=== PATIENT | male | born 1950 | race Caucasian/White ===

== ENCOUNTER 2016-11-17 06:20 | Outpatient (CLI) | payer MEDICARE, OTHER | END 2016-11-17 06:21 | disposition home or self-care (01) | DX: E11.9 Type 2 diabetes mellitus without complications (principal); Z79.899 Other long term (current) drug therapy; E78.5 Hyperlipidemia, unspecified ==

== ENCOUNTER 2016-11-20 10:45 | Outpatient (CLI) | payer MEDICARE, OTHER | END 2016-11-20 10:46 | disposition home or self-care (01) | DX: D64.9 Anemia, unspecified (principal) ==

== ENCOUNTER 2017-02-07 09:37 | Outpatient (CLI) | payer MEDICARE, OTHER | END 2017-02-07 09:38 | disposition home or self-care (01) | DX: E11.9 Type 2 diabetes mellitus without complications (principal) ==

== ENCOUNTER 2017-06-06 11:36 | Outpatient (CLI) | payer MEDICARE, OTHER ==
[2017-06-06 19:44] LABS: HEMOGLOBIN A1C 0.79 g/dL
== END 2017-06-06 11:37 | disposition home or self-care (01) ==
LOC: LAB.WCP 11:36
PROVIDERS: ATTEND Family Medicine
DX: E11.9 Type 2 diabetes mellitus without complications (principal)
CPT/HCPCS: 36415; 83036

== ENCOUNTER 2017-12-28 08:00 | Outpatient (CLI) | payer MEDICARE, OTHER ==
[2017-12-28 13:01] LABS: HB2 TOTAL 15.2 g/dL; HEMOGLOBIN A1C 0.82 g/dL; HEMOGLOBIN A1C % 7.1 % (4.6-6.2)
== END 2017-12-28 08:01 | disposition home or self-care (01) ==
LOC: LAB.WCP 08:00
PROVIDERS: ATTEND Family Medicine
DX: E11.9 Type 2 diabetes mellitus without complications (principal); I10 Essential (primary) hypertension; E78.5 Hyperlipidemia, unspecified
CPT/HCPCS: 36415; 83036

== ENCOUNTER 2018-03-15 09:30 | Outpatient (CLI) | payer MEDICARE, OTHER ==
[2018-03-15 12:41] LABS: CALCIUM 9.5 mg/dL (8.5-10.3); CREATININE 0.8 mg/dL (0.6-1.2)
[2018-03-15 13:10] LABS: HB2 TOTAL 14.6 g/dL; HEMOGLOBIN A1C 0.77 g/dL
== END 2018-03-15 09:31 | disposition home or self-care (01) ==
LOC: LAB.WCP 09:30
PROVIDERS: ATTEND Family Medicine
DX: E11.9 Type 2 diabetes mellitus without complications (principal); I10 Essential (primary) hypertension
CPT/HCPCS: 36415; 80048; 83036

== ENCOUNTER 2018-06-14 08:00 | Outpatient (CLI) | payer MEDICARE, OTHER ==
[2018-06-14 13:29] LABS: HB2 TOTAL 13.1 g/dL; HEMOGLOBIN A1C 0.63 g/dL; HEMOGLOBIN A1C % 6.6 % (4.6-6.2)
== END 2018-06-14 08:01 | disposition home or self-care (01) ==
LOC: LAB.WCP 08:00
PROVIDERS: ATTEND Family Medicine
DX: E11.9 Type 2 diabetes mellitus without complications (principal)
CPT/HCPCS: 36415; 83036

== ENCOUNTER 2018-09-16 10:32 | Outpatient (CLI) | payer MEDICARE, OTHER ==
[2018-09-16 13:31] LABS: ALBUMIN 3.8 g/dL (3.2-5.5); ALBUMIN/GLOBULIN RATIO 1.2 (1.0-2.2); ALKALINE PHOSPHATASE 60 IU/L (42-121); ALT ALANINE AMINOTRANSFERASE 24 IU/L (10-60); AST ASPARTATE AMINOTRANSFERASE 28 IU/L (10-42); BILIRUBIN,TOTAL 0.6 mg/dL (0.2-1.0); BUN - BLOOD UREA NITROGEN 17 mg/dL (6-20); CALCIUM 10.4 mg/dL (8.5-10.3); CARBON DIOXIDE - CO2 28 mmol/L (21-32); CHLORIDE 104 mmol/L (101-111); CHOL/HDL RATIO 2.8 (<5.0); CHOLESTEROL 169 mg/dL; GFR - MDRD 74 (>89); GLUCOSE 142 mg/dL (70-100); HDL CHOLESTEROL 60 mg/dL; LDL CHOLESTEROL,CALCULATED 88 mg/dL; LDL/HDL RATIO 1.5 (<3.6); SODIUM 139 mmol/L (135-145); TOTAL PROTEIN 6.9 g/dL (6.7-8.2); VLDL CHOLESTEROL 21 mg/dL
[2018-09-16 13:35] LABS: HB2 TOTAL 14.4 g/dL; HEMOGLOBIN A1C 0.71 g/dL; HEMOGLOBIN A1C % 6.7 % (4.6-6.2)
== END 2018-09-16 10:33 | disposition home or self-care (01) ==
LOC: LAB.WCP 10:32
PROVIDERS: ATTEND Family Medicine
DX: D64.9 Anemia, unspecified (principal); E11.9 Type 2 diabetes mellitus without complications; I10 Essential (primary) hypertension; E78.5 Hyperlipidemia, unspecified
CPT/HCPCS: 36415; 80053; 80061; 82043; 83036; 83721

== ENCOUNTER 2019-03-19 09:21 | Outpatient (CLI) | payer MEDICARE, OTHER ==
[2019-03-19 12:26] LABS: BASOPHILS # (AUTO) 0.1 10^3/uL (0.0-0.1); BASOPHILS % (AUTO) 0.8 %; EOSINOPHILS # (AUTO) 0.5 10^3/uL (0.0-0.7); EOSINOPHILS % (AUTO) 7.7 %; HGB - HEMOGLOBIN 12.7 g/dL (14.0-18.0); LYMPHOCYTES # (AUTO) 1.7 10^3/uL (1.5-3.5); LYMPHOCYTES % (AUTO) 26.6 %; MEAN CORPUSCULAR HEMOGLOBIN 31.7 pg (27.0-31.0); MEAN CORPUSCULAR HGB CONC 34.1 g/dL (32.0-36.0); MEAN CORPUSCULAR VOLUME 92.7 fL (80.0-94.0); MONOCYTES # (AUTO) 0.6 10^3/uL (0.0-1.0); NEUTROPHILS # (AUTO) 3.6 10^3/uL (1.5-6.6); NEUTROPHILS % (AUTO) 55.9 %; PLT - PLATELET COUNT 184 10^3/uL (130-450); RED BLOOD COUNT 4.02 10^6/uL (4.70-6.10); RED CELL DISTRIBUTION WIDTH 13.7 % (12.0-15.0); WHITE BLOOD COUNT 6.4 x10^3/uL (4.8-10.8)
[2019-03-19 13:12] LABS: HB2 TOTAL 13.4 g/dL; HEMOGLOBIN A1C 0.68 g/dL; HEMOGLOBIN A1C % 6.8 % (4.6-6.2)
[2019-03-19 13:58] LABS: ALBUMIN 3.8 g/dL (3.2-5.5); ALBUMIN/GLOBULIN RATIO 1.3 (1.0-2.2); ALKALINE PHOSPHATASE 59 IU/L (42-121); ALT ALANINE AMINOTRANSFERASE 23 IU/L (10-60); AST ASPARTATE AMINOTRANSFERASE 25 IU/L (10-42); BILIRUBIN,TOTAL 0.5 mg/dL (0.2-1.0); BUN - BLOOD UREA NITROGEN 17 mg/dL (6-20); CHOL/HDL RATIO 3.1 (<5.0); CHOLESTEROL 165 mg/dL; CREATININE 1.1 mg/dL (0.6-1.2); GFR - MDRD 66 (>89); HDL CHOLESTEROL 53 mg/dL; LDL CHOLESTEROL,CALCULATED 81 mg/dL; LDL/HDL RATIO 1.5 (<3.6); TOTAL PROTEIN 6.8 g/dL (6.7-8.2); VLDL CHOLESTEROL 31 mg/dL
[2019-03-19 14:53] LABS: CALCIUM 9.7 mg/dL (8.5-10.3); CARBON DIOXIDE - CO2 26 mmol/L (21-32); CHLORIDE 103 mmol/L (101-111); GLUCOSE 151 mg/dL (70-100); SODIUM 141 mmol/L (135-145)
[2019-03-20 15:26] LABS: HEPATITIS C ANTIBODY NON-REACTIVE (NON-REACTIVE)
== END 2019-03-19 09:22 | disposition home or self-care (01) ==
LOC: LAB.WCP 09:21
PROVIDERS: ATTEND Family Medicine
DX: E11.9 Type 2 diabetes mellitus without complications (principal); E83.52 Hypercalcemia; Z11.59 Encounter for screening for other viral diseases
CPT/HCPCS: 36415; 80053; 80061; 82043; 83036; 83721; 83970; 85025; 86803

== ENCOUNTER 2019-09-19 09:39 | Outpatient (CLI) | payer MEDICARE, OTHER ==
[2019-09-19 13:22] LABS: ALBUMIN 3.9 g/dL (3.2-5.5); ALBUMIN/GLOBULIN RATIO 1.2 (1.0-2.2); BILIRUBIN,TOTAL 0.6 mg/dL (0.2-1.0); CALCIUM 10.1 mg/dL (8.5-10.3); TOTAL PROTEIN 7.2 g/dL (6.7-8.2)
[2019-09-19 14:01] LABS: HB2 TOTAL 12.7 g/dL; HEMOGLOBIN A1C 0.7 g/dL; HEMOGLOBIN A1C % 7.2 % (4.6-6.2)
== END 2019-09-19 23:59 | disposition home or self-care (01) ==
LOC: LAB.WCP 09:39
PROVIDERS: ATTEND Family Medicine
DX: E11.9 Type 2 diabetes mellitus without complications (principal); Z12.5 Encounter for screening for malignant neoplasm of prostate
CPT/HCPCS: 36415; 80053; 83036; 84153

== ENCOUNTER 2021-01-13 10:19 | Outpatient (CLI) | payer MEDICARE, OTHER ==
[2021-01-13 13:54] LABS: BASOPHILS # (AUTO) 0.1 10^3/uL (0.0-0.1); BASOPHILS % (AUTO) 0.8 %; EOSINOPHILS # (AUTO) 0.4 10^3/uL (0.0-0.7); EOSINOPHILS % (AUTO) 6.2 %; HCT - HEMATOCRIT 41.4 % (42.0-52.0); HGB - HEMOGLOBIN 13.7 g/dL (14.0-18.0); LYMPHOCYTES # (AUTO) 1.5 10^3/uL (1.5-3.5); LYMPHOCYTES % (AUTO) 23.1 %; MEAN CORPUSCULAR HEMOGLOBIN 31.8 pg (27.0-31.0); MEAN CORPUSCULAR HGB CONC 33.1 g/dL (32.0-36.0); MEAN CORPUSCULAR VOLUME 96.1 fL (80.0-94.0); MEAN PLATELET VOLUME 12.9 fL (7.4-11.4); MONOCYTES # (AUTO) 0.6 10^3/uL (0.0-1.0); NEUTROPHILS # (AUTO) 3.9 10^3/uL (1.5-6.6); NEUTROPHILS % (AUTO) 60.1 %; PLT - PLATELET COUNT 156 10^3/uL (130-450); RED BLOOD COUNT 4.31 10^6/uL (4.70-6.10); RED CELL DISTRIBUTION WIDTH 12.8 % (12.0-15.0); WHITE BLOOD COUNT 6.5 x10^3/uL (4.8-10.8)
[2021-01-13 14:21] LABS: THYROID STIMULATING HORMONE 2.41 uIU/mL (0.34-5.60)
[2021-01-13 14:28] LABS: FERRITIN 90.9 ng/mL (23.9-336.2)
[2021-01-13 14:34] LABS: % IRON SATURATION 26 % (20-50); ALBUMIN/GLOBULIN RATIO 1.3 (1.0-2.2); ALKALINE PHOSPHATASE 55 IU/L (42-121); ALT ALANINE AMINOTRANSFERASE 32 IU/L (10-60); AST ASPARTATE AMINOTRANSFERASE 34 IU/L (10-42); BILIRUBIN,TOTAL 0.5 mg/dL (0.2-1.0); BUN - BLOOD UREA NITROGEN 21 mg/dL (6-20); CARBON DIOXIDE - CO2 25 mmol/L (21-32); CHLORIDE 100 mmol/L (101-111); CHOL/HDL RATIO 2.9 (<5.0); CHOLESTEROL 168 mg/dL; GFR - MDRD 74 (>89); GLUCOSE 179 mg/dL (70-100); HDL CHOLESTEROL 58 mg/dL; IRON 105 ug/dL (45-182); LDL CHOLESTEROL,CALCULATED 88 mg/dL; LDL/HDL RATIO 1.5 (<3.6); POTASSIUM 4.1 mmol/L (3.5-5.0); SODIUM 137 mmol/L (135-145); TOTAL IRON BINDING CAPACITY 399 ug/dL (250-450); TOTAL PROTEIN 7.2 g/dL (6.7-8.2); TRANSFERRIN 285 mg/dL (180-329); TRIGLYCERIDES 111 mg/dL; VLDL CHOLESTEROL 22 mg/dL
[2021-01-13 14:39] LABS: ESTIMATED AVERAGE GLUCOSE 186 mg/dL (70-100); HEMOGLOBIN A1c% 8.1 % (4.27-6.07)
[2021-01-13 14:49] LABS: CREATININE,URINE 117.6 mg/dL; MICROALBUM/CREATININE RATIO,UR 27.2 ug/mg (<30.0); MICROALBUMIN,URINE 3.2 mg/dL (0-300.0)
== END 2021-01-13 23:59 | disposition home or self-care (01) ==
LOC: LAB.WCP 10:19
PROVIDERS: ATTEND Family Medicine
DX: E11.9 Type 2 diabetes mellitus without complications (principal); Z12.5 Encounter for screening for malignant neoplasm of prostate; E78.5 Hyperlipidemia, unspecified; D64.9 Anemia, unspecified
CPT/HCPCS: 36415; 80053; 80061; 82043; 82570; 82607; 82728; 83036; 83540; 84443; 84466; 85025; G0103; 83721; 84153

== ENCOUNTER 2021-04-15 11:04 | Outpatient (CLI) | payer MEDICARE, OTHER ==
[2021-04-15 18:01] LABS: CALCIUM 10.3 mg/dL (8.5-10.3); POTASSIUM 4.5 mmol/L (3.5-5.0)
[2021-04-15 20:34] LABS: ESTIMATED AVERAGE GLUCOSE 180 mg/dL (70-100); HEMOGLOBIN A1c% 7.9 % (4.27-6.07)
== END 2021-04-15 23:59 | disposition home or self-care (01) ==
LOC: LAB.WCP 11:04
PROVIDERS: ATTEND Family Medicine
DX: E11.9 Type 2 diabetes mellitus without complications (principal)
CPT/HCPCS: 36415; 80048; 83036

== ENCOUNTER 2021-10-12 08:00 | Outpatient (CLI) | payer MEDICARE, OTHER ==
[2021-10-12 18:19] LABS: BASOPHILS % (AUTO) 0.6 %; EOSINOPHILS # (AUTO) 0.4 10^3/uL (0.0-0.7); EOSINOPHILS % (AUTO) 6.5 %; HCT - HEMATOCRIT 41.4 % (42.0-52.0); HGB - HEMOGLOBIN 13.4 g/dL (14.0-18.0); LYMPHOCYTES # (AUTO) 1.3 10^3/uL (1.5-3.5); LYMPHOCYTES % (AUTO) 21.2 %; MEAN CORPUSCULAR HEMOGLOBIN 31.5 pg (27.0-31.0); MEAN CORPUSCULAR HGB CONC 32.4 g/dL (32.0-36.0); MEAN CORPUSCULAR VOLUME 97.2 fL (80.0-94.0); MEAN PLATELET VOLUME 12.1 fL (7.4-11.4); MONOCYTES # (AUTO) 0.4 10^3/uL (0.0-1.0); MONOCYTES % (AUTO) 6.8 %; NEUTROPHILS # (AUTO) 4.1 10^3/uL (1.5-6.6); NEUTROPHILS % (AUTO) 64.3 %; PLT - PLATELET COUNT 191 10^3/uL (130-450); RED BLOOD COUNT 4.26 10^6/uL (4.70-6.10); RED CELL DISTRIBUTION WIDTH 13.2 % (12.0-15.0); WHITE BLOOD COUNT 6.3 x10^3/uL (4.8-10.8)
[2021-10-12 18:39] LABS: ALBUMIN 3.8 g/dL (3.2-5.5); ALBUMIN/GLOBULIN RATIO 1.3 (1.0-2.2); ALKALINE PHOSPHATASE 52 IU/L (42-121); ALT ALANINE AMINOTRANSFERASE 23 IU/L (10-60); AST ASPARTATE AMINOTRANSFERASE 26 IU/L (10-42); BILIRUBIN,TOTAL 0.5 mg/dL (0.2-1.0); BUN - BLOOD UREA NITROGEN 17 mg/dL (6-20); CALCIUM 10.2 mg/dL (8.5-10.3); CARBON DIOXIDE - CO2 26 mmol/L (21-32); CHLORIDE 103 mmol/L (101-111); CHOLESTEROL 162 mg/dL; GFR - MDRD 74 (>89); GLUCOSE 192 mg/dL (70-100); HDL CHOLESTEROL 54 mg/dL; LDL CHOLESTEROL,CALCULATED 86 mg/dL; LDL/HDL RATIO 1.6 (<3.6); POTASSIUM 4.1 mmol/L (3.5-5.0); SODIUM 141 mmol/L (135-145); TOTAL PROTEIN 6.8 g/dL (6.7-8.2); TRIGLYCERIDES 109 mg/dL; VLDL CHOLESTEROL 22 mg/dL
[2021-10-12 18:43] LABS: CREATININE,URINE 131.5 mg/dL; MICROALBUM/CREATININE RATIO,UR 54.8 ug/mg (<30.0); MICROALBUMIN,URINE 7.2 mg/dL (0-300.0)
[2021-10-12 18:48] LABS: THYROID STIMULATING HORMONE 2.52 uIU/mL (0.34-5.60)
[2021-10-12 21:18] LABS: ESTIMATED AVERAGE GLUCOSE 197 mg/dL (70-100); HEMOGLOBIN A1c% 8.5 % (4.27-6.07)
== END 2021-10-12 23:59 ==
LOC: LAB.WCP 08:00
PROVIDERS: ATTEND Family Medicine
DX: E11.9 Type 2 diabetes mellitus without complications (principal); Z12.5 Encounter for screening for malignant neoplasm of prostate
CPT/HCPCS: 36415; 80053; 80061; 82043; 82570; 83036; 84443; 85025; G0103; 83721; 84153

== ENCOUNTER 2021-11-09 10:36 | Outpatient (CLI) | payer MEDICARE, OTHER ==
--- NOTE | 2021-11-09 16:35 | XRAY Report ---
PROCEDURE: Hand 3 View RT INDICATIONS: R THUMB PX TECHNIQUE: 3 views of the hand(s) acquired. COMPARISON: None FINDINGS: Bones: No fractures or dislocations. No suspicious bony lesions. Moderate first CMC joint osteoarth ritis. Moderate second and third DIP joint arthritis. Mild fourth and fifth DIP joint arthritis. Soft tissues: No suspicious soft tissue calcifications. IMPRESSION: Osteoarthritis as described above. No fracture. No acute osseous lesion. If there persistent symptoms or continued clinical concern for pathology, then repeat plain film radiographs (7-10 days) or advanced imaging (CT, MR, bone scan) wilver uld be considered for further evaluation. Reviewed by: Roxane Gregg MD, PhD on 11/09/2021 4:33 PM PST Approved by: Roxane Gregg MD, PhD on 11/09/2021 4:33 PM PST Station ID: [id number]
== END 2021-11-09 10:37 | disposition home or self-care (01) ==
LOC: DI.N 10:36
PROVIDERS: ATTEND Family Medicine
DX: M19.041 Primary osteoarthritis, right hand (principal); M18.11 Unilateral primary osteoarthritis of first carpometacarpal joint, right hand

== ENCOUNTER 2022-03-31 08:41 | Outpatient (CLI) | payer MEDICARE, OTHER ==
[2022-03-31 12:20] LABS: ESTIMATED AVERAGE GLUCOSE 169 mg/dL (70-100); HEMOGLOBIN A1c% 7.5 % (4.27-6.07)
[2022-03-31 12:25] LABS: ALBUMIN 3.9 g/dL (3.2-5.5); ALBUMIN/GLOBULIN RATIO 1.2 (1.0-2.2); ALKALINE PHOSPHATASE 51 IU/L (42-121); ALT ALANINE AMINOTRANSFERASE 18 IU/L (10-60); AST ASPARTATE AMINOTRANSFERASE 20 IU/L (10-42); BILIRUBIN,TOTAL 0.4 mg/dL (0.2-1.0); BUN - BLOOD UREA NITROGEN 22 mg/dL (6-20); CALCIUM 11.2 mg/dL (8.5-10.3); CARBON DIOXIDE - CO2 27 mmol/L (21-32); CHLORIDE 103 mmol/L (101-111); CHOLESTEROL 167 mg/dL; CREATININE 1.1 mg/dL (0.6-1.2); GFR - MDRD 66 (>89); GLUCOSE 179 mg/dL (70-100); HDL CHOLESTEROL 56 mg/dL; LDL CHOLESTEROL,CALCULATED 87 mg/dL; LDL/HDL RATIO 1.6 (<3.6); POTASSIUM 4.4 mmol/L (3.5-5.0); SODIUM 142 mmol/L (135-145); TOTAL PROTEIN 7.1 g/dL (6.7-8.2); TRIGLYCERIDES 122 mg/dL; VLDL CHOLESTEROL 24 mg/dL
== END 2022-03-31 08:42 | disposition home or self-care (01) ==
LOC: LAB.N 08:41
PROVIDERS: ATTEND Nurse Practitioner Family
DX: E11.9 Type 2 diabetes mellitus without complications (principal)
CPT/HCPCS: 36415; 80053; 80061; 83036; 83721

== ENCOUNTER 2022-07-03 10:46 | Outpatient (CLI) | payer MEDICARE, OTHER ==
[2022-07-03 18:16] LABS: ALBUMIN 4.1 g/dL (3.2-5.5); ALBUMIN/GLOBULIN RATIO 1.2 (1.0-2.2); ALKALINE PHOSPHATASE 56 IU/L (42-121); ALT ALANINE AMINOTRANSFERASE 23 IU/L (10-60); AST ASPARTATE AMINOTRANSFERASE 28 IU/L (10-42); BILIRUBIN,TOTAL 0.5 mg/dL (0.2-1.0); BUN - BLOOD UREA NITROGEN 24 mg/dL (6-20); CALCIUM 9.8 mg/dL (8.5-10.3); CARBON DIOXIDE - CO2 27 mmol/L (21-32); CHLORIDE 100 mmol/L (101-111); CHOL/HDL RATIO 2.6 (<5.0); CHOLESTEROL 167 mg/dL; CREATININE 1.1 mg/dL (0.6-1.2); GFR - MDRD 66 (>89); GLUCOSE 183 mg/dL (70-100); HDL CHOLESTEROL 65 mg/dL; LDL CHOLESTEROL,CALCULATED 79 mg/dL; LDL/HDL RATIO 1.2 (<3.6); POTASSIUM 4.6 mmol/L (3.5-5.0); SODIUM 137 mmol/L (135-145); TOTAL PROTEIN 7.4 g/dL (6.7-8.2); TRIGLYCERIDES 115 mg/dL; VLDL CHOLESTEROL 23 mg/dL
== END 2022-07-03 10:47 | disposition home or self-care (01) ==
LOC: LAB.N 10:46
PROVIDERS: ATTEND Nurse Practitioner Family
DX: E11.9 Type 2 diabetes mellitus without complications (principal); E78.5 Hyperlipidemia, unspecified
CPT/HCPCS: 36415; 80053; 80061; 83721

== ENCOUNTER 2022-10-04 10:53 | Outpatient (CLI) | payer MEDICARE, OTHER | END 2022-10-04 10:54 | disposition home or self-care (01) | LOC: LAB.N 10:53 | PROVIDERS: ATTEND Nurse Practitioner Family | DX: Z53.9 Procedure and treatment not carried out, unspecified reason (principal) ==

== ENCOUNTER 2022-10-04 11:17 | Outpatient (CLI) | payer MEDICARE, OTHER | END 2022-10-04 11:18 | disposition home or self-care (01) | LOC: LAB.N 11:17 | PROVIDERS: ATTEND Nurse Practitioner Family | DX: Z53.9 Procedure and treatment not carried out, unspecified reason (principal) ==

== ENCOUNTER 2023-03-08 10:14 | Outpatient (CLI) | payer MEDICARE, OTHER ==
[2023-03-08 11:52] LABS: BASOPHILS # (AUTO) 0.1 10^3/uL (0.0-0.1); BASOPHILS % (AUTO) 0.6 %; EOSINOPHILS # (AUTO) 0.5 10^3/uL (0.0-0.7); EOSINOPHILS % (AUTO) 5.9 %; HCT - HEMATOCRIT 40.4 % (42.0-52.0); HGB - HEMOGLOBIN 13.2 g/dL (14.0-18.0); LYMPHOCYTES # (AUTO) 1.6 10^3/uL (1.5-3.5); LYMPHOCYTES % (AUTO) 20.6 %; MEAN CORPUSCULAR HEMOGLOBIN 31.2 pg (27.0-31.0); MEAN CORPUSCULAR HGB CONC 32.7 g/dL (32.0-36.0); MEAN CORPUSCULAR VOLUME 95.5 fL (80.0-94.0); MEAN PLATELET VOLUME 11.6 fL (7.4-11.4); MONOCYTES # (AUTO) 0.7 10^3/uL (0.0-1.0); MONOCYTES % (AUTO) 8.7 %; NEUTROPHILS % (AUTO) 63.8 %; PLT - PLATELET COUNT 180 10^3/uL (130-450); RED BLOOD COUNT 4.23 10^6/uL (4.70-6.10); RED CELL DISTRIBUTION WIDTH 12.9 % (12.0-15.0); WHITE BLOOD COUNT 7.8 x10^3/uL (4.8-10.8)
[2023-03-08 12:28] LABS: ESTIMATED AVERAGE GLUCOSE 183 mg/dL (70-100)
[2023-03-08 14:20] LABS: ALBUMIN 4.1 g/dL (3.2-5.5); ALBUMIN/GLOBULIN RATIO 1.2 (1.0-2.2); ALKALINE PHOSPHATASE 58 IU/L (42-121); ALT ALANINE AMINOTRANSFERASE 18 IU/L (10-60); AST ASPARTATE AMINOTRANSFERASE 22 IU/L (10-42); BILIRUBIN,TOTAL 0.5 mg/dL (0.2-1.0); BUN - BLOOD UREA NITROGEN 27 mg/dL (6-20); CALCIUM 9.6 mg/dL (8.5-10.3); CARBON DIOXIDE - CO2 29 mmol/L (21-32); CHLORIDE 104 mmol/L (101-111); CHOL/HDL RATIO 2.4 (<5.0); CHOLESTEROL 133 mg/dL; CREATININE 1.2 mg/dL (0.6-1.2); GFR - MDRD 59 (>89); GLUCOSE 217 mg/dL (70-100); HDL CHOLESTEROL 55 mg/dL; LDL CHOLESTEROL,CALCULATED 54 mg/dL; POTASSIUM 4.3 mmol/L (3.5-5.0); SODIUM 140 mmol/L (135-145); TOTAL PROTEIN 7.6 g/dL (6.7-8.2); TRIGLYCERIDES 119 mg/dL; VLDL CHOLESTEROL 24 mg/dL
== END 2023-03-08 10:15 | disposition home or self-care (01) ==
LOC: LAB.N 10:14
PROVIDERS: ATTEND Nurse Practitioner Family
DX: I10 Essential (primary) hypertension (principal); E11.9 Type 2 diabetes mellitus without complications; E78.5 Hyperlipidemia, unspecified
CPT/HCPCS: 36415; 80053; 80061; 83036; 83721; 85025

== ENCOUNTER 2023-08-08 10:41 | Outpatient (CLI) | payer MEDICARE, OTHER ==
[2023-08-08 17:38] LABS: BASOPHILS # (AUTO) 0.1 10^3/uL (0.0-0.1); BASOPHILS % (AUTO) 0.9 %; EOSINOPHILS # (AUTO) 0.4 10^3/uL (0.0-0.7); EOSINOPHILS % (AUTO) 5.5 %; HCT - HEMATOCRIT 39.1 % (42.0-52.0); HGB - HEMOGLOBIN 12.6 g/dL (14.0-18.0); LYMPHOCYTES # (AUTO) 1.7 10^3/uL (1.5-3.5); LYMPHOCYTES % (AUTO) 21.8 %; MEAN CORPUSCULAR HEMOGLOBIN 31.4 pg (27.0-31.0); MEAN CORPUSCULAR HGB CONC 32.2 g/dL (32.0-36.0); MEAN CORPUSCULAR VOLUME 97.5 fL (80.0-94.0); MEAN PLATELET VOLUME 12.1 fL (7.4-11.4); MONOCYTES # (AUTO) 0.7 10^3/uL (0.0-1.0); MONOCYTES % (AUTO) 8.7 %; NEUTROPHILS # (AUTO) 4.8 10^3/uL (1.5-6.6); NEUTROPHILS % (AUTO) 62.6 %; PLT - PLATELET COUNT 183 10^3/uL (130-450); RED BLOOD COUNT 4.01 10^6/uL (4.70-6.10); RED CELL DISTRIBUTION WIDTH 13.2 % (12.0-15.0); WHITE BLOOD COUNT 7.7 x10^3/uL (4.8-10.8)
[2023-08-08 18:30] LABS: ALBUMIN/GLOBULIN RATIO 1.5 (1.0-2.2); ALKALINE PHOSPHATASE 64 IU/L (42-121); ALT ALANINE AMINOTRANSFERASE 11 IU/L (10-60); AST ASPARTATE AMINOTRANSFERASE 15 IU/L (10-42); BILIRUBIN,TOTAL 0.3 mg/dL (0.2-1.0); BUN - BLOOD UREA NITROGEN 19 mg/dL (6-20); CALCIUM 10.4 mg/dL (8.5-10.3); CARBON DIOXIDE - CO2 28 mmol/L (21-32); CHLORIDE 108 mmol/L (101-111); CHOL/HDL RATIO 2.6 (<5.0); CHOLESTEROL 151 mg/dL; CREATININE 1.1 mg/dL (0.6-1.3); GFR - MDRD 66 (>89); GLUCOSE 144 mg/dL (74-104); HDL CHOLESTEROL 59 mg/dL; LDL CHOLESTEROL,CALCULATED 69 mg/dL; LDL/HDL RATIO 1.2 (<3.6); SODIUM 143 mmol/L (135-145); TOTAL PROTEIN 6.7 g/dL (6.4-8.9); TRIGLYCERIDES 116 mg/dL (48-352); VLDL CHOLESTEROL 23 mg/dL
[2023-08-08 18:34] LABS: CREATININE,URINE 210.7 mg/dL; MICROALBUM/CREATININE RATIO,UR 97.3 ug/mg (<30.0); MICROALBUMIN,URINE 20.5 mg/dL
[2023-08-08 20:55] LABS: ESTIMATED AVERAGE GLUCOSE 169 mg/dL (70-100); HEMOGLOBIN A1c% 7.5 % (4.27-6.07)
== END 2023-08-08 10:42 | disposition home or self-care (01) ==
LOC: LAB.N 10:41
PROVIDERS: ATTEND Nurse Practitioner Family
DX: E11.9 Type 2 diabetes mellitus without complications (principal); E78.5 Hyperlipidemia, unspecified; I10 Essential (primary) hypertension
CPT/HCPCS: 36415; 80053; 80061; 82043; 82570; 83036; 83721; 85025

== ENCOUNTER 2023-12-27 18:27 | Outpatient (CLI) | payer MEDICARE, OTHER | END 2023-12-27 23:59 | disposition critical access hospital (66) | LOC: CANPRECLI → EMS 18:27 | DX: R50.9 Fever, unspecified (principal) ==

== ENCOUNTER 2023-12-27 18:27 | Outpatient (CLI) | payer MEDICARE, OTHER | END 2023-12-27 18:28 | disposition critical access hospital (66) | LOC: EMS 18:27 | DX: R50.9 Fever, unspecified (principal); R53.1 Weakness; R00.0 Tachycardia, unspecified; R05.9 Cough, unspecified; R25.1 Tremor, unspecified; R26.9 Unspecified abnormalities of gait and mobility | CPT/HCPCS: A0425; A0429 ==

== ENCOUNTER 2023-12-27 18:47 | Observation (INO) | payer MEDICARE, OTHER ==
--- NOTE | 2023-12-27 21:10 | XRAY Report ---
PROCEDURE: Chest 1V INDICATIONS: Sepsis TECHNIQUE: One view of the chest was acquired. COMPARISON: None. FINDINGS: Surgical changes and devices: None. Lungs and pleura: Diffuse interstitial prominence. Perihilar airway thickening. Loss of vascular dis tinctness. Hazy bilateral costophrenic angle opacities likely representing small bilateral pleural ef fusion. Mediastinum: Mediastinal contours appear normal. Heart size is enlarged. Bones and chest wall: No suspicious bony lesions. Overlying soft tissues appear unremarkable. IMPRESSION: Cardiomegaly with diffuse interstitial prominence, vascular congestion, and suspected small bilateral pleural effusion. Findings likely represent pulmonary edema/CHF. However, concurrent infectious or i nflammatory process may have a similar appearance if clinically appropriate. No focal consolidations identified. Reviewed by: Tamir Love MD on 12/27/2023 9:09 PM PST Approved by: Tamir Love MD on 12/27/2023 9:09 PM PST Station ID: [id number]
[2023-12-27 21:13] LABS: BASOPHILS % (AUTO) 0.4 %; EOSINOPHILS % (AUTO) 0.3 %; HCT - HEMATOCRIT 39.5 % (42.0-52.0); HGB - HEMOGLOBIN 12.9 g/dL (14.0-18.0); LYMPHOCYTES # (AUTO) 0.5 10^3/uL (1.5-3.5); LYMPHOCYTES % (AUTO) 6.8 %; MEAN CORPUSCULAR HEMOGLOBIN 31.1 pg (27.0-31.0); MEAN CORPUSCULAR HGB CONC 32.7 g/dL (32.0-36.0); MEAN CORPUSCULAR VOLUME 95.2 fL (80.0-94.0); MONOCYTES # (AUTO) 0.9 10^3/uL (0.0-1.0); NEUTROPHILS # (AUTO) 5.9 10^3/uL (1.5-6.6); NEUTROPHILS % (AUTO) 79.8 %; PLT - PLATELET COUNT 156 10^3/uL (130-450); RED BLOOD COUNT 4.15 10^6/uL (4.70-6.10); RED CELL DISTRIBUTION WIDTH 13.8 % (12.0-15.0); WHITE BLOOD COUNT 7.4 x10^3/uL (4.8-10.8)
[2023-12-27 21:26] LABS: LACTIC ACID, VENOUS 2.6 mmol/L (0.5-2.2)
[2023-12-27 21:27] LABS: ALBUMIN 4.1 g/dL (3.2-5.5); ALBUMIN/GLOBULIN RATIO 1.4 (1.0-2.2); BILIRUBIN,TOTAL 0.3 mg/dL (0.2-1.0); CALCIUM 9.1 mg/dL (8.5-10.3); CREATININE 1.1 mg/dL (0.6-1.3); POTASSIUM 4.2 mmol/L (3.5-4.5)
[2023-12-27] MEDS: SODIUM CHLORIDE 0.9% 1,000 ML IV STA (21:39)
[2023-12-27] MEDS: ACETAMINOPHEN 325 MG TABLET PO STA (21:39)
--- NOTE | 2023-12-27 22:01 | ED Physician Documentation ---
History of Present Illness - Stated complaint Stated Complaint: GLF, WEAKNESS - Chief complaint Chief Complaint: General - History obtained from History obtained from: Patient - Additonal information Additional information: 73yM with pmh htn, hld, dm, p/w soa, cough, rhinorrhea, nasal congestion X few days and generalized weakness today. patient fell prior to arrival but did not hit head. denies loc. also with fever, tmax 102 oral at home. PD PAST MEDICAL HISTORY - Past Medical History Cardiovascular: Hypertension, High cholesterol Respiratory: None Neuro: None Endocrine/Autoimmune: Type 2 diabetes GI: None : None Psych: None Musculoskeletal: Osteoarthritis, Other Derm: None - Past Surgical History Past Surgical History: No Ortho: Knee replacement - Present Medications Home Medications: Ambulatory Orders Medication Instructions Recorded Confirmed Felodipine [Plendil] 5 mg PO DAILY 01/03/14 12/27/23 Simvastatin 20 mg PO QPM 01/03/14 12/27/23 lisinopriL [Lisinopril] 20 mg PO DAILY 01/03/14 12/27/23 metFORMIN [Glucophage] 500 mg PO BIDWM 01/03/14 12/27/23 Insulin Aspart [NovoLOG] 20 - 30 unit SUBQ TIDWM 12/05/21 12/27/23 Insulin Glargine [Lantus Solostar] 20 - 30 unit SUBQ BID 12/05/21 12/27/23 timoloL maleate [Timoptic-Xe] 1 drops EACHEYE BID 12/05/21 12/27/23 - Allergies Allergies/Adverse Reactions: Allergies Allergy/AdvReac Type Severity Reaction Status Date / Time No Known Drug Allergies Allergy Verified 01/03/14 12:51 - Social History Does the pt smoke?: No Smoking Status: Never smoker Does the pt drink ETOH?: No ETOH Use: None Does the pt have substance abuse?: No - Immunizations Immunizations are current?: Yes - POLST Patient has POLST: No PD ED PE NORMAL - Vitals Vital signs reviewed: Yes - General General: Alert and oriented X 3, Other (large body habitus) - HEENT HEENT: Atraumatic, PERRL, EOMI, Moist mucous membranes, Pharynx benign - Neck Neck: Supple, no meningeal sign - Cardiac Cardiac: Other (tachycardic rate, rgular rhythm) - Respiratory Respiratory: Other (BL rales and rhonchi) - Abdomen Abdomen: Non tender, Non distended - Derm Derm: Other (flushed and warm) Results - Vitals Vitals: Vital Signs - 24 hr 12/27/23 19:10 Temperature 39.3 C H Heart Rate 113 H Respiratory 29 H Rate Blood Pressure 168/80 H O2 Saturation 92 Oxygen O2 Source Room air - EKG (time done) 2225 EKG releavant findings:: EKG personally interpreted by author of this note. Relevant findings are: Rate: Rate (enter#) (111) Rhythm: Sinus tachycardia - Labs Labs: Laboratory Tests 12/27/23 12/27/23 12/27/23 21:04 21:04 21:04 WBC 7.4 RBC 4.15 L Hgb 12.9 L Hct 39.5 L MCV 95.2 H MCH 31.1 H MCHC 32.7 RDW 13.8 Plt Count 156 MPV 11.0 Neut # (Auto) 5.9 Lymph # (Auto) 0.5 L [place] # (Auto) 0.9 Eos # (Auto) 0.0 Baso # (Auto) 0.0 Absolute Nucleated RBC 0.00 Nucleated RBC % 0.0 Sodium 137 Potassium 4.2 Chloride 104 Carbon Dioxide 22 Anion Gap 11.0 BUN 18 Creatinine 1.1 Estimated GFR (MDRD) 65 L Glucose 264 H Lactic Acid 2.6 H Calcium 9.1 Total Bilirubin 0.3 AST 18 ALT 13 Alkaline Phosphatase 65 Total Protein 7.0 Albumin 4.1 Globulin 2.9 Albumin/Globulin Ratio 1.4 Urine Color Urine Clarity Urine pH Ur Specific [place] Urine Protein Urine Glucose (UA) Urine Ketones Urine Occult Blood Urine Nitrite Urine Bilirubin Urine Urobilinogen Ur Leukocyte Esterase Urine RBC Urine WBC Urine WBC Clumps Ur Squamous Epith Cells Urine Bacteria Urine Culture Comments 12/27/23 21:45 WBC RBC Hgb Hct MCV MCH MCHC RDW Plt Count MPV Neut # (Auto) Lymph # (Auto) [place] # (Auto) Eos # (Auto) Baso # (Auto) Absolute Nucleated RBC Nucleated RBC % Sodium Potassium Chloride Carbon Dioxide Anion Gap BUN Creatinine Estimated GFR (MDRD) Glucose Lactic Acid Calcium Total Bilirubin AST ALT Alkaline Phosphatase Total Protein Albumin Globulin Albumin/Globulin Ratio Urine Color YELLOW Urine Clarity CLEAR Urine pH 6.0 Ur Specific [place] 1.025 Urine Protein 100 H Urine Glucose (UA) 500 H Urine Ketones 15 H Urine Occult Blood TRACE-INTA Urine Nitrite NEGATIVE Urine Bilirubin NEGATIVE Urine Urobilinogen 0.2 (NORMAL) Ur Leukocyte Esterase NEGATIVE Urine RBC 6-10 H Urine WBC 4-5 Urine WBC Clumps PRESENT Ur Squamous Epith Cells FEW Squamous Urine Bacteria None Seen Urine Culture Comments NOT INDICATED PD Medical Decision Making - ED course ED course: 73yM presents with acute pneumonia on CXR along with BL pleural effusions. septic vital signs on arrival, treated empirically with rocephin/azithro. Patient is requiring 2L nasal cannula, satting 95%. He becomes acutely dyspneic and o2 sat drops to low 90s off oxygen at rest. plan to admit for pneumonia in setting of hypoxia. Departure - Departure Disposition: 66 [facility] DC/Xfer Clinical Impression: Pneumonia Condition: Fair Forms: PCP List
[2023-12-27 22:03] LABS: BILIRUBIN,URINE NEGATIVE (NEGATIVE); GLUCOSE, URINE (UA) 500 mg/dL (NEGATIVE); KETONES,URINE (UA) 15 mg/dL (NEGATIVE); LEUKOCYTE ESTERASE, URINE NEGATIVE (NEGATIVE); NITRITE,URINE NEGATIVE (NEGATIVE); OCCULT BLOOD,URINE TRACE-INTA (NEGATIVE); PROTEIN,URINE 100 mg/dL (NEGATIVE); UROBILINOGEN,URINE 0.2 (NORMAL) E.U./dL (NORMAL)
[2023-12-27 22:17] LABS: CLARITY,URINE CLEAR (CLEAR)
[2023-12-27 22:18] LABS: BACTERIA,URINE None Seen /HPF (None Seen); SQUAMOUS EPITHELIAL CELL,UR FEW Squamous (<= Few); WBC CLUMPS,URINE PRESENT
[2023-12-27] MEDS ORDERED: cefTRIAXone 2 GM VIAL ONE (22:27)
[2023-12-27] MEDS: cefTRIAXone 2 GM in SODIUM CHLORIDE 0.9% MINIBAG 100 ML IV STA (22:35)
[2023-12-27] MEDS: TETANUS/DIPHTHERIA/PERTUSSIS 0.5 ML SYRINGE IM ONE (22:35)
--- NOTE | 2023-12-27 22:47 | HISTORY & PHYSICAL EXAMINATION ---
Chief Complaint - Chief Complaint Chief Complaint: shortness of breath, cough History of Present Illness - Admitted From Admitted From:: home - History Obtained From History obtained from: patient Exam Limitations: telemedicine - History of Present Illness HPI Comment/Other: Mr Real is a 73 yo M with hx DM II, HTN, HLD. Presents to ER with c/o cough, shortness of breath, onset yesterday. No fevers or chills. Non productive cough. He came to the ER after GLF in his garage, denies LOC, he fell while he was loading the washing machine, he squatted down and couldn't get back up, fell backwards, denies head trauma. Denies sick contacts. History - Past Medical History Cardiovascular: reports: Hypertension, High cholesterol Respiratory: reports: None Neuro: reports: None Endocrine/Autoimmune: reports: Type 2 diabetes GI: reports: None : reports: None Psych: reports: None Musculoskeletal: reports: Osteoarthritis, Other Derm: reports: None MRSA Hx?: No - Past Surgical History Ortho: reports: Knee replacement - POLST Patient has POLST: No Meds/Allgy - Home Medications Home Medications: Ambulatory Orders Medication Instructions Recorded Confirmed Felodipine [Plendil] 5 mg PO DAILY 01/03/14 12/27/23 Simvastatin 20 mg PO QPM 01/03/14 12/27/23 lisinopriL [Lisinopril] 20 mg PO DAILY 01/03/14 12/27/23 metFORMIN [Glucophage] 500 mg PO BIDWM 01/03/14 12/27/23 Insulin Aspart [NovoLOG] 20 - 30 unit SUBQ TIDWM 12/05/21 12/27/23 Insulin Glargine [Lantus Solostar] 20 - 30 unit SUBQ BID 12/05/21 12/27/23 timoloL maleate [Timoptic-Xe] 1 drops EACHEYE BID 12/05/21 12/27/23 - Allergies Allergies/Adverse Reactions: Allergies Allergy/AdvReac Type Severity Reaction Status Date / Time No Known Drug Allergies Allergy Verified 01/03/14 12:51 Review of Systems - Constitutional Constitutional: reports: Weakness. denies: Fever, Chills, Malaise - Eyes Eyes: denies: Blurred vision - Ears, Nose & Throat Ears, Nose & Throat: denies: Hearing loss - Cardiovascular Cariovascular: denies: Palpitations, Chest pain - Respiratory Respiratory: reports: Cough, SOB at rest (occasionally, not new). denies: Sputum production - Gastrointestinal Gastrointestinal: denies: Abdominal pain, Nausea, Vomiting - Genitourinary Genitourinary: denies: Dysuria, Frequency - Musculoskeletal Musculoskeletal: denies: Muscle pain, Back pain - Integumentary Integumentary: denies: Rash, Pruritis - Neurological Neurological: denies: General weakness, Focal weakness, Numbness - Psychiatric Psychiatric: denies: Depression - All Other Systems All Other Systems: reports: Reviewed and negative Prior Level of Functionality: ambulates independently Exam - Vital Signs Reviewed Vital Signs: Yes Vital Signs: Vital Signs x48h Temp Pulse Resp BP Pulse Ox 12/27/23 19:10 39.3 C H 113 H 29 H 168/80 H 92 - Physical Exam General Appearance: positive: No acute distress, Alert Eyes Bilateral: positive: Normal inspection ENT: positive: ENT inspection nml Neck: positive: Nml inspection Respiratory: positive: No respiratory distress Skin: positive: Color nml, No rash Neurologic/Psychiatric: positive: Oriented x3, CN's nml (2-12), Motor nml Sepsis Event Note (H) - Evaluation Current Stage of Sepsis: Sepsis Possible source of Sepsis: positive: Pulmonary - Sepsis Criteria Sepsis Criteria: Recorded Temperature greater than 38.3C or Less than 36C, Recorded Heart Rate greater than 90 bpm, Respiratory: Increasing oxygen requirements Conclusion/Plan - Lab Results Lab results reviewed: Yes Fish Bones: 12/27/23 21:04 12/27/23 21:04 - Diagnostic Imaging Results Diagnostic Imaging Results: positive: Final report reviewed - Other Other Results/Comments: Assessment/Plan: Sepsis, present at admission, and acute hypoxic respiratory failure, likely related to community acquired pneumonia -Pt presents with fever, tachycardia -CXR bilateral infiltrates -Possible component of volume overload/pulmonary vascular congestion -Pt denies any known hx cardiac disease, reports hx stress test last year, obtain outside records -F/u procalcitonin -Lactic acidosis 2.6 - repeat pending -Continue IV azithromycin, IV ceftriaxone -Currently on 2 L NC, baseline room air, wean off as tolerated -F/u blood cultures DM II -Continue Lantus + SSI HTN -Continue home meds Glaucoma -Continue home eye drops - pt takes qhs not BID Full code DVT ppx: Lovenox sc Telemedicine Consult Details - Provider Location & Consult Time Telemedicine consultation conducted via videoconferencing?: Yes List names and roles of persons who participated in consult:: patient, his , MD Telemedicine provider location:: [facility] [place]
[2023-12-27] MEDS ORDERED: SODIUM CHLORIDE FLUSH 0.9% 10 ML SYRINGE IVP PRN (22:56)
[2023-12-27 23:04] LABS: CORONAVIRUS 229E-RESP PCR NOT DETECTED; CORONAVIRUS HKU1-RESP PCR NOT DETECTED; CORONAVIRUS NL63-RESP PCR NOT DETECTED; CORONAVIRUS OC43-RESP PCR NOT DETECTED
[2023-12-27 23:05] LABS: B. PARAPERTUSSIS- RESP PCR PAN NOT DETECTED; B. PERTUSSIS- RESP PCR PANEL NOT DETECTED; C. PNEUMONIAE- RESP PCR PANEL NOT DETECTED; HUMAN METAPNEUMOVIRUS NOT DETECTED; INFLUENZA A- RESP PCR PANEL NOT DETECTED; INFLUENZA B - RESP PCR PANEL NOT DETECTED; M. PNEUMONIAE- RESP PCR PANEL NOT DETECTED; PARAINFLUENZA VIRUS 1 NOT DETECTED; PARAINFLUENZA VIRUS 2 NOT DETECTED; PARAINFLUENZA VIRUS 3 NOT DETECTED; PARAINFLUENZA VIRUS 4 NOT DETECTED; RHINOVIRUS/ENTEROVIRUS NOT DETECTED; RSV- RESP PCR PANEL NOT DETECTED; SARS-CoV-2 -RESP PCR PANEL DETECTED
[2023-12-27] MEDS: AZITHROMYCIN INJ 500 MG in SODIUM CHLORIDE 0.9% 250 ML IV STA (23:18)
[2023-12-28] MEDS: INSULIN GLARGINE-YFGN 300 UNIT/3 ML PEN SUBQ SCH (01:25)
[2023-12-28] MEDS: SODIUM CHLORIDE FLUSH 0.9% 10 ML SYRINGE IVP SCH (01:26)
[2023-12-28 04:58] LABS: HCT - HEMATOCRIT 35.6 % (42.0-52.0); HGB - HEMOGLOBIN 11.5 g/dL (14.0-18.0); MEAN CORPUSCULAR HEMOGLOBIN 31.3 pg (27.0-31.0); MEAN CORPUSCULAR HGB CONC 32.3 g/dL (32.0-36.0); MEAN CORPUSCULAR VOLUME 96.7 fL (80.0-94.0); MEAN PLATELET VOLUME 11.3 fL (7.4-11.4); RED BLOOD COUNT 3.68 10^6/uL (4.70-6.10); RED CELL DISTRIBUTION WIDTH 13.7 % (12.0-15.0); WHITE BLOOD COUNT 5.1 x10^3/uL (4.8-10.8)
[2023-12-28] MEDS: ACETAMINOPHEN 325 MG TABLET PO PRN (05:07)
[2023-12-28 05:11] LABS: CALCIUM 8.4 mg/dL (8.5-10.3); CREATININE 1.1 mg/dL (0.6-1.3); POTASSIUM 3.8 mmol/L (3.5-4.5)
[2023-12-28] MEDS: ENOXAPARIN 40 MG/0.4 ML SYRINGE SUBQ SCH (09:11)
[2023-12-28] MEDS: INSULIN LISPRO 300 UNIT/3 ML PEN SUBQ SCH (09:12)
[2023-12-28 10:38] VITALS: O2SAT 95
--- NOTE | 2023-12-28 11:18 | Discharge Plan ---
Discharge Plan Problem Reviewed?: Yes Disposition: Home, Self Care Condition: Fair Prescriptions: Nirmatrelvir/Ritonavir [Paxlovid 300-100 mg Dose Pack] 1 each PO UD #1 ea Cyanocobalamin [Vitamin B-12] 500 mcg PO DAILY #30 tablet Diet: Diabetic Activity Restrictions: Activity as Tolerated Shower Restrictions: No Health Concerns: You were hospitalized to treat an "atypical" pneumonia and you tested COVID- positive. You no longer need supplemental oxygen, since your oxygen levels are stable on room air, therefore you are being discharged home today. You qualify to take a course of Paxlovid, to prevent the COVID from becoming a more severe infection. Paxlovid has been prescribed electronically to your [facility] pharmacy in [place]. You should not take your Simvastatin while you are on these several days of Paxlovid. Then Simvastatin can be restarted after Paxlovid is finished. You may use Tylenol or Motrin if you get a fever again, and cough expectorants [id number] of your choice, for your cough. Please stay well hydrated. We also found you to have a vitamin B12 deficiency. Daily vitamin B12 has also been prescribed to your pharmacy. Please resume all your other usual pre-hospital medications and management. Plan of Treatment: As above. Care Goals: Improvement in symptoms and stabilization are the goals. Assessment: Please follow these directions after discharge. If you feel that you are having more respiratory distress, you can be seen in a Walk-In clinic or come back to the ER. No Smoking: If you smoke, Please STOP! Call for help. Follow-up with: Caryn Clark ARNP [Primary Care Provider] -
--- NOTE | 2023-12-28 12:10 | PHARMACY PROGRESS NOTE ---
- Best Possible Medication History Admit Date and Time: 12/27/23 8996 Processed by: Nursing Medications reviewed in ED?: Yes Medication History completed: Yes Patient Interview: Completed Secondary Source(s): Insurance records As the person ultimately responsible for medication therapy, providers are able to order a medication from an existing home medication list in [facility] via the "Reconcile Routine" prior to Confirmation of that medication by forestry support specialist. Such practice is discouraged except when the physician, in their clinical judgment, deems that a medical need exists for a medication without regard to previous use.
--- NOTE | 2023-12-28 12:40 | DISCHARGE SUMMARY ---
Discharge Summary Admit Date: 12/27/23 Discharge Date: 12/28/23 Discharging Provider: Dr Darlin Samano Primary Care Provider: TESS Clark Condition at Discharge: Fair Discharge Disposition: 01 Home, Self Care - HPI History of Present Illness: Mr Real is a 73 yo M with hx DM type II, HTN, HLD. Presents to ER with c/o cough, shortness of breath, onset yesterday. No fevers or chills. Non productive cough. Denies sick contacts. He came to the ER after GLF at home, denies LOC. He fell while he was loading the washing machine, he squatted down and couldn't get back up, fell backwards, denies head trauma. He tried getting up for 45-60 min, he says and was too weak. ER evaluation showed that he has fever of 39.3, tachycardic at 112, and has elevated Lactic Acid level of 2.6. His imaging had diffuse atypical pneumonia on chest x-ray, and he is COVID-positive. His O2 saturation was 92% on room air. He was placed on 1 L/min O2 and saturation daniel to 95% The patient is being placed in Observation for management. - HOSPITAL COURSE Hospital Course: Sepsis Pt presented at admission with fever, tachycardia, elevated Lactic acid of 2.6 and borderline O2 sat, likely related to COVID pneumonia. He had no more fever, heart rate and lactic acid levels normalized and he had unexpectedly good O2 saturation of 95% on room air, by the next morning, and was able to be discharged COVID pneumonia He was given one dose of empiric IV azithromycin, IV ceftriaxone. We followed standard precautions Fall at home Orthostatic vital signs showed he was not orthostatic. Vitamin B12 deficiency He was given B12 for replacement DM II We continued Lantus + SSI Morbid obesity BMI 40-44.9 HTN We continued home meds Glaucoma We continued home eye drops qhs - ALLERGIES Allergies/Adverse Reactions: Allergies Allergy/AdvReac Type Severity Reaction Status Date / Time No Known Drug Allergies Allergy Verified 01/03/14 12:51 - MEDICATIONS Home Medications: Ambulatory Orders Medication Instructions Recorded Confirmed Felodipine [Plendil] 5 mg PO DAILY 01/03/14 12/27/23 lisinopriL [Lisinopril] 20 mg PO DAILY 01/03/14 12/27/23 metFORMIN [Glucophage] 500 mg PO BIDWM 01/03/14 12/27/23 Insulin Aspart [NovoLOG] 20 - 30 unit SUBQ TIDWM 12/05/21 12/27/23 Insulin Glargine [Lantus Solostar] 20 - 30 unit SUBQ BID 12/05/21 12/27/23 timoloL maleate [Timoptic-Xe] 1 drops EACHEYE BID 12/05/21 12/27/23 Cyanocobalamin [Vitamin B-12] 500 mcg PO DAILY #30 tablet 12/28/23 Nirmatrelvir/Ritonavir [Paxlovid 1 each PO UD #1 ea 12/28/23 300-100 mg Dose Pack] - PHYSICAL EXAM AT DISCHARGE General Appearance: positive: No acute distress, Alert Eyes Bilateral: positive: EOMI, No lid inflammation Neck: positive: Nml inspection Respiratory: positive: No respiratory distress Cardiovascular: positive: Regular rate & rhythm Abdomen: positive: Non-tender Skin: positive: Warm, Dry Extremities: positive: No pedal edema Neurologic/Psychiatric: positive: Oriented x3, CN's nml (2-12) - LABS Result Diagrams: 12/28/23 04:46 12/28/23 04:46 - SEPSIS Current Stage of Sepsis: Sepsis Possible source of Sepsis: Pulmonary Sepsis Criteria: Recorded Temperature greater than 38.3C or Less than 36C, Recorded Heart Rate greater than 90 bpm, Respiratory: Increasing oxygen requirements - FOLLOW UP Follow Up: See PCP for a hospital F/U visit. - TIME SPENT Time Spent in Discharge (Minutes): 35
[2023-12-28 12:42] VITALS: BP 137/68
[2023-12-28] MEDS ORDERED: cefTRIAXone 1 GM in SODIUM CHLORIDE 0.9% MINIBAG 100 ML IV SCH (21:00)
[2023-12-28] MEDS ORDERED: cefTRIAXone 1 GM VIAL IVP SCH (21:00)
[2023-12-28] MEDS ORDERED: AZITHROMYCIN INJ 500 MG in SODIUM CHLORIDE 0.9% 250 ML IV SCH (22:00)
== END 2023-12-28 13:30 | disposition home or self-care (01) ==
LOC: EDUNIT# → ED 18:47 → MS2 22:56
PROVIDERS: ADMIT Student in an Organized Health Care Education/Training Program; ATTEND Internal Medicine
DX: A41.89 Other specified sepsis (principal); U07.1 COVID-19; J12.82 Pneumonia due to coronavirus disease 2019; J96.01 Acute respiratory failure with hypoxia; E11.9 Type 2 diabetes mellitus without complications; Z79.4 Long term (current) use of insulin; Z79.84 Long term (current) use of oral hypoglycemic drugs; E53.8 Deficiency of other specified B group vitamins; Z91.81 History of falling; I10 Essential (primary) hypertension; E78.5 Hyperlipidemia, unspecified; E66.01 Morbid (severe) obesity due to excess calories; Z68.41 Body mass index [BMI] 40.0-44.9, adult; H40.9 Unspecified glaucoma; E78.00 Pure hypercholesterolemia, unspecified
CPT/HCPCS: 36415; 71045; 80048; 80053; 81001; 82607; 83605; 83880; 84145; 84484; 85025; 85027; 87040; 87633; 90471; 90715; 93005; 96365; 96366; 96367; 96372; 99284; 99285; A9270; G0378; J1650; J1815; 87086

== ENCOUNTER 2024-03-21 10:00 | Outpatient (CLI) | payer MEDICARE, OTHER ==
[2024-03-21 12:22] LABS: BASOPHILS # (AUTO) 0.1 10^3/uL (0.0-0.1); EOSINOPHILS # (AUTO) 0.4 10^3/uL (0.0-0.7); EOSINOPHILS % (AUTO) 5.3 %; HCT - HEMATOCRIT 38.7 % (42.0-52.0); HGB - HEMOGLOBIN 12.4 g/dL (14.0-18.0); LYMPHOCYTES # (AUTO) 1.7 10^3/uL (1.5-3.5); LYMPHOCYTES % (AUTO) 24.8 %; MEAN CORPUSCULAR HEMOGLOBIN 30.6 pg (27.0-31.0); MEAN CORPUSCULAR VOLUME 95.6 fL (80.0-94.0); MEAN PLATELET VOLUME 12.4 fL (7.4-11.4); MONOCYTES # (AUTO) 0.6 10^3/uL (0.0-1.0); MONOCYTES % (AUTO) 8.9 %; NEUTROPHILS # (AUTO) 4.2 10^3/uL (1.5-6.6); NEUTROPHILS % (AUTO) 59.6 %; PLT - PLATELET COUNT 173 10^3/uL (130-450); RED BLOOD COUNT 4.05 10^6/uL (4.70-6.10); RED CELL DISTRIBUTION WIDTH 13.5 % (12.0-15.0)
[2024-03-21 12:42] LABS: ALBUMIN 4.1 g/dL (3.2-5.5); ALBUMIN/GLOBULIN RATIO 1.4 (1.0-2.2); BILIRUBIN,TOTAL 0.4 mg/dL (0.2-1.0); CALCIUM 10.2 mg/dL (8.5-10.3); CREATININE 1.1 mg/dL (0.6-1.3); POTASSIUM 4.2 mmol/L (3.5-4.5)
[2024-03-21 13:01] LABS: ESTIMATED AVERAGE GLUCOSE 186 mg/dL (70-100); HEMOGLOBIN A1c% 8.1 % (4.27-6.07)
== END 2024-03-21 10:01 | disposition home or self-care (01) ==
LOC: LAB.N 10:00
PROVIDERS: ATTEND Nurse Practitioner Family
DX: I10 Essential (primary) hypertension (principal); E11.65 Type 2 diabetes mellitus with hyperglycemia; D64.9 Anemia, unspecified; E53.8 Deficiency of other specified B group vitamins
CPT/HCPCS: 36415; 80053; 82607; 82746; 83036; 85025

== ENCOUNTER 2024-06-17 22:16 | Outpatient (CLI) | payer MEDICARE, OTHER | END 2024-06-17 22:17 | disposition EMS.NT | LOC: EMS 22:16 | DX: Z03.89 Encounter for observation for other suspected diseases and conditions ruled out (principal) ==

== ENCOUNTER 2024-06-18 11:05 | Outpatient (CLI) | payer MEDICARE, OTHER | END 2024-06-18 23:59 | disposition critical access hospital (66) | LOC: EMS 11:05 | DX: R53.1 Weakness (principal); S91.202A Unspecified open wound of left great toe with damage to nail, initial encounter; W06.XXXA Fall from bed, initial encounter; Y92.003 Bedroom of unspecified non-institutional (private) residence as the place of occurrence of the external cause | CPT/HCPCS: A0425; A0429 ==

== ENCOUNTER 2024-06-18 11:25 | Emergency (ER) | payer MEDICARE, OTHER ==
--- NOTE | 2024-06-18 11:31 | ED Physician Documentation ---
PD HPI LOWER EXT INJURY - Stated complaint Stated Complaint: GLF BILAT KNEE PX - History obtained from History obtained from: Patient, EMS - History of Present Illness PD HPI LOW EXT INJURY LOCATION: Both (has had pains in both knees with them "giving out" at times. He has slid out of bed starting to get up several times the past week or so. Did so today and difficulty getting back up. Pains both knees, with left one being the more likely to give out, initiated by sharp pain.) Type of injury: Fall (the falls are from the knee pains with bending and trying to get up from sitting. No particular initial injury/fall. they have been hurting for awhile.). No: Twist Where injury occurred: Home Timing - duration: Weeks, Months Timing - details: Gradual onset, Intermittant Worsened by: Moving (mostly when trying to get up and down, will pain and give out.) PD PAST MEDICAL HISTORY - Past Medical History Cardiovascular: Hypertension, High cholesterol Respiratory: None Neuro: None Endocrine/Autoimmune: Type 2 diabetes GI: None : None Psych: None Musculoskeletal: Osteoarthritis, Other Derm: None - Past Surgical History Past Surgical History: No Ortho: Knee replacement - Present Medications Home Medications: Ambulatory Orders Medication Instructions Recorded Confirmed Felodipine [Plendil] 5 mg PO DAILY 01/03/14 06/18/24 lisinopriL [Lisinopril] 20 mg PO DAILY 01/03/14 06/18/24 metFORMIN [Glucophage] 500 mg PO BIDWM 01/03/14 06/18/24 Insulin Aspart [NovoLOG] 20 - 30 unit SUBQ TIDWM 12/05/21 06/18/24 Insulin Glargine [Lantus Solostar] 20 - 30 unit SUBQ BID 12/05/21 06/18/24 timoloL maleate [Timoptic-Xe] 1 drops EACHEYE BID 12/05/21 06/18/24 Cyanocobalamin [Vitamin B-12] 500 mcg PO DAILY #30 tablet 12/28/23 Nirmatrelvir/Ritonavir [Paxlovid 1 each PO UD #1 ea 12/28/23 300-100 mg Dose Pack] Meloxicam [Mobic] 7.5 mg PO BID 10 Days #20 tablet 06/18/24 Semaglutide [Ozempic] 0.25 mg SUBQ PRN PRN 06/18/24 06/18/24 Simvastatin [Zocor] 40 mg PO DAILY 06/18/24 06/18/24 - Allergies Allergies/Adverse Reactions: Allergies Allergy/AdvReac Type Severity Reaction Status Date / Time No Known Drug Allergies Allergy Verified 06/18/24 11:33 - Social History Does the pt smoke?: No Smoking Status: Never smoker Does the pt drink ETOH?: No Does the pt have substance abuse?: No - Immunizations Immunizations are current?: Yes - POLST Patient has POLST: No PD ED PE NORMAL - Vitals Vital signs reviewed: Yes - General General: Alert and oriented X 3, Well developed/nourished - Derm Derm: Normal color, Warm and dry - Extremities Extremities: Other (knees with prior replacement scars. No effusion. Cruciate testing without pain nor laxity. Tender along anteromedial area c/w bursa or pes anserinus. Collateral testing has some clunkiness to it both sides, and some pain to left. ) - Neuro Neuro: No motor deficit, No sensory deficit Results - Vitals Vitals: Oxygen O2 Source Room air - Rads (name of study) bilat knees Relevant Findings:: Prelim report reviewed, EMP independent interpretation of test (bilateral arthroplasty without fractures. No notable lucency around the glue line. ) bilat hips Relevant Findings:: Prelim report reviewed (arthritic changes, no fractures nor noted necrosis. ), EMP independent interpretation of test PD Medical Decision Making - ED course Complexity details: considered differential (prior hip replacements many years ago. Having knee and hip pains with walking and particularly knee pains when bending/straightening, like standing up. Will get sharp pain and knee give out, leading to slumping fall. Sounds like ligaments as he would not still have meniscus per se. ), d/w patient ED course: can try NSAIDs and hinged knee brace to try to prevent knee buckling all the way. Refer to Ortho. Departure - Departure Disposition: 01 Home, Self Care Clinical Impression: Knee pain, bilateral, Knee gives out Condition: Stable Record reviewed to determine appropriate education?: Yes Follow-Up: [facility] [Provider Group] Prescriptions: Meloxicam [Mobic] 7.5 mg PO BID 10 Days #20 tablet Comments: Your knee replacements appear in proper location without any obvious displacement. Your symptoms sound consistent with possibly muscle or ligament injury or pain with the giving out of the knee. We did place a hinged knee brace for your left knee which she stated was the worst of them. Hopefully this will provide some support to the knee and particularly torsional support and lateral support and the hinged part will only allow it so far forward so cannot give out completely. I would suggest some anti-inflammatories regularly. I wrote a prescription for 1 called meloxicam which is only twice a day and hopefully little easier on your stomach. To that plan on using some Tylenol/acetaminophen 500 to 650 mg 4 times daily for the next week or so as well. Follow-up with orthopedic clinic. You can follow-up with the one here in [place] or alternatively if the orthopedist who had done your knees is still in practice up in [place] if you prefer that way. Hopefully there will be improvement over the next several days to week or so if it is more some inflammatory changes and strain of the muscles. Forms: PCP List Discharge Date/Time: 06/18/24 14:07
[2024-06-18 14:13] VITALS: BP 167/83; O2SAT 99
--- NOTE | 2024-06-18 15:00 | XRAY Report ---
PROCEDURE: Hips w/Pelvis 2-3V BL INDICATIONS: bilat hip/knee pains after falls TECHNIQUE: 2 view(s) of the hip were acquired. COMPARISON: None FINDINGS: Bones: No fractures or dislocations. No suspicious bony lesions. The visualized pelvic ring appear s intact. Mild degenerative changes Soft tissues: No suspicious soft tissue calcifications or masses. IMPRESSION: Degenerative changes without fracture or foreign body Reviewed by: Perfecto Villarreal MD on 06/18/2024 1:58 PM AKDT Approved by: Perfecto Villarreal MD on 06/18/2024 1:58 PM AKDT Station ID: [id number]
--- NOTE | 2024-06-18 15:01 | XRAY Report ---
PROCEDURE: Knee 3V BL INDICATIONS: bilat knees/hips pains after falls TECHNIQUE: 3 views of the knee was obtained. COMPARISON: None FINDINGS: Bones: No fractures or dislocations. No suspicious bony lesions. Bilateral knee arthroplasty Soft tissues: No knee joint effusion. No suspicious soft tissue calcifications or masses. Small ves latoya atherosclerotic vascular calcification IMPRESSION: Bilateral arthroplasty. No fracture Reviewed by: Perfecto Villarreal MD on 06/18/2024 1:59 PM AKDT Approved by: Perfecto Villarreal MD on 06/18/2024 1:59 PM AKDT Station ID: [id number]
== END 2024-06-18 14:07 | disposition home or self-care (01) ==
LOC: EDUNIT# → ED 11:25
DX: M25.562 Pain in left knee (principal); M25.561 Pain in right knee; I10 Essential (primary) hypertension; E78.00 Pure hypercholesterolemia, unspecified; E11.9 Type 2 diabetes mellitus without complications; Z79.84 Long term (current) use of oral hypoglycemic drugs; Z79.899 Other long term (current) drug therapy; Z79.4 Long term (current) use of insulin
CPT/HCPCS: 99284

== ENCOUNTER 2024-06-19 08:40 | Outpatient (CLI) | payer MEDICARE, OTHER | END 2024-06-19 23:59 | disposition EMS.NT | LOC: EMS 08:40 | DX: Z03.89 Encounter for observation for other suspected diseases and conditions ruled out (principal) ==